=== PATIENT | female | born 1985 | race Caucasian/White ===

== ENCOUNTER 2018-10-19 17:08 | Outpatient (REF) | payer OTHER, SELFPAY ==
[2018-10-19 21:46] LABS: Cholesterol 283 mg/dL (50-200); HDL Cholesterol 46 mg/dL (40-60); TSH 1.54 uIU/mL (0.358-3.74); Triglyceride 181 mg/dL (30-150)
[2018-10-19 22:57] LABS: FREE T4 0.81 ng/dL (0.76-1.46)
[2018-10-19 23:10] LABS: LDL CHOLESTEROL 211 mg/dL (<100)
[2018-10-20 16:51] LABS: T3,Free 3.2 pg/ml (2.8-5.3)
== END 2018-10-19 17:28 ==
LOC: NCHCN 17:08
PROVIDERS: PCP Nurse Practitioner Family; Visit Provider Nurse Practitioner Family
DX: E78.5 Hyperlipidemia, unspecified (principal); F41.8 Other specified anxiety disorders; R19.8 Other specified symptoms and signs involving the digestive system and abdomen; R51 Headache; E66.9 Obesity, unspecified; Z90.89 Acquired absence of other organs
CPT/HCPCS: 80061; 83721; 84439; 84443; 84481

== ENCOUNTER 2019-11-19 12:04 | Outpatient (REF) | payer OTHER, SELFPAY ==
[2019-11-19 22:39] LABS: Abs Immature Grans 0.01 k/cumm (0.0-0.09); Absolute Basophil Count 0.03 k/cumm (0.0-0.2); Absolute Lymphocyte Count 1.32 k/cumm (1.2-3.4); Absolute Monocyte Count 0.33 k/cumm (0.11-0.7); Absolute Neutrophil Count 3.67 k/cumm (1.2-6.7); Basophils % 0.5; Eosinophils % 3.6; HCT 40.2 % (36.0-46.0); HGB 13.5 g/dL (12.0-15.5); Immature Grans % 0.2; Lymphocytes % 23.7; Mean Corp. HGB Concentration 33.6 g/dL (32.0-36.0); Mean Corpuscular Volume 86.5 fL (80-95); Mean Platelet Volume 11.7 fL (8.0-11.0); Monocytes % 5.9; Neutrophils % 66.1; Platelet Count 234 x1000/uL (130-400); RBC 4.65 m/cumm (4.00-5.20); RBC Distribution Width 13.3 % (11.7-14.6); White Blood Cell Count 5.56 k/cumm (4.4-10.8)
[2019-11-19 22:51] LABS: Iron 53 ug/dL (50-170)
[2019-11-19 23:04] LABS: Anion Gap 12.1 mmol/L (3-11); BUN 14 mg/dL (7-18); CO2 22.9 mmol/L (21.0-32.0); CREATININE 0.69 mg/dL (0.55-1.02); Calcium 8.9 mg/dL (8.5-10.1); Chloride 106 mmol/L (98-107); FREE T4 0.76 ng/dL (0.76-1.46); Glucose 96 mg/dL (74-106); Magnesium 1.7 mg/dL (1.8-2.4); Potassium 4.2 mmol/L (3.5-5.1); Sodium 141 mmol/L (136-145); TSH 1.45 uIU/mL (0.36-3.74)
[2019-11-19 23:45] LABS: Vitamin B12 949 pg/mL (193-986)
[2019-11-21 11:43] LABS: T3,Free 3.3 pg/mL (2.8-5.3)
== END 2019-11-19 12:24 ==
LOC: NCHCN 12:04
PROVIDERS: PCP Nurse Practitioner Family; Visit Provider Nurse Practitioner Family
DX: R53.83 Other fatigue (principal); R19.8 Other specified symptoms and signs involving the digestive system and abdomen; K30 Functional dyspepsia; R51 Headache; E78.5 Hyperlipidemia, unspecified; F41.8 Other specified anxiety disorders; E66.9 Obesity, unspecified; Z90.89 Acquired absence of other organs
CPT/HCPCS: 80048; 82607; 83540; 83735; 84439; 84443; 84481; 85025

== ENCOUNTER 2022-03-23 09:50 | Outpatient (REF) | payer OTHER, SELFPAY ==
--- NOTE | 2022-03-23 | PAPFT_PTH ---
PATIENT: Sweta Reid LOC: [facility]#:[id number] AGE/SX: 36/F ROOM: RE03/23/[address]: Aleja Mittal : 1985 BED: DIS: 03/23/2022 SPEC #: [id number] RECD: 03/23/22 16:29 STATUS: RANDY VO #: [id number] ALYSSA: 03/23/22 00:[address]: Aleja Mittal DEPT: [facility] Cytology RECD BY: Ang Mckeon Tissues: 1 - CX/ENDOCX FOR PAP SMEARS Procedures: PAP THIN PREP/UVM Screening HPV DNA PROBE Comments: [id number]
[2022-03-23 14:16] LABS: Abs Immature Grans 0.01 10^3/uL (0.0-0.06); Absolute Basophil Count 0.04 10^3/uL (0.0-0.2); Absolute Eosinophil Count 0.21 10^3/uL (0.0-0.7); Absolute Lymphocyte Count 1.76 10^3/uL (1.2-3.4); Absolute Monocyte Count 0.42 10^3/uL (0.1-0.8); Absolute Neutrophil Count 3.66 10^3/uL (1.2-6.7); Basophils % 0.7; Eosinophils % 3.4; HCT 41.4 % (36.0-46.0); HGB 13.8 g/dL (11.2-15.7); Immature Grans % 0.2; Lymphocytes % 28.9; MCHC 33.3 % (32.0-36.0); MCV 87 fL (80-95); MPV 11.9 fL (8.0-11.0); Monocytes % 6.9; Neutrophils % 59.9; Platelet Count 227 10^3/uL (130-400); RBC 4.76 10^6/uL (3.93-5.22); RDW 13.2 % (11.7-14.6); RDW-SD 41.8 fL
[2022-03-23 14:23] LABS: Iron 96 ug/dL (50-170); Total Iron Binding Capacity 315 ug/dL (250-450); Transferrin Sat 30 % (15-50)
[2022-03-23 14:52] LABS: Anion Gap 7.2 mmol/L (3-11); BUN 16 mg/dL (7-18); CO2 25.8 mmol/L (21.0-32.0); CREATININE 0.7 mg/dL (0.55-1.02); Calcium 8.6 mg/dL (8.5-10.1); Calculated LDL 204 mg/dL (<100); Chloride 106 mmol/L (98-107); Cholesterol 284 mg/dL (<200); Ferritin 83 ng/mL (8-252); Glucose 85 mg/dL (74-106); HDL Cholesterol 54 mg/dL (40-60); Potassium 4.1 mmol/L (3.5-5.1); Sodium 139 mmol/L (136-145); TSH (W/Ref FT4) 1.44 uIU/mL (0.36-3.74); Triglyceride 133 mg/dL (<150); Vitamin B12 717 pg/mL (193-986)
[2022-03-23 22:26] LABS: T3,Free 3.2 pg/mL (2.8-5.3)
[2022-03-24 10:47] LABS: Lyme Ab w Rflx to Lyme Confirm Negative (Negative)
[2022-03-25 22:23] LABS: Anaplasma phagocytophilum Negative (Negative); B. miyamotoi PCR Negative (Negative); Babesia divergens/MO-1 Negative (Negative); Babesia duncani Negative (Negative); Babesia microti Negative (Negative); Ehrlichia chaffeensis Negative (Negative); Ehrlichia ewingii/canis Negative (Negative); Ehrlichia muris eauclairensis Negative (Negative)
== END 2022-03-23 09:51 | disposition home or self-care (01) ==
LOC: NCHCN 09:50
PROVIDERS: PCP Nurse Practitioner Family; Visit Provider Nurse Practitioner Family
DX: R20.2 Paresthesia of skin (principal); R53.83 Other fatigue; R51.9 Headache, unspecified; K30 Functional dyspepsia; Z00.00 Encounter for general adult medical examination without abnormal findings; Z12.4 Encounter for screening for malignant neoplasm of cervix; Z11.51 Encounter for screening for human papillomavirus (HPV); M25.571 Pain in right ankle and joints of right foot; J30.2 Other seasonal allergic rhinitis; Z01.419 Encounter for gynecological examination (general) (routine) without abnormal findings
CPT/HCPCS: 80048; 80061; 87798; 88142; 82607; 82728; 83540; 83550; 84439; 84443; 84481; 85025; 86618; 87624

== ENCOUNTER 2022-04-01 21:11 | Emergency (ER) | payer OTHER, SELFPAY ==
--- NOTE | 2022-04-01 21:15 | RT.EKG_ITS ---
APPROVED REPORT Exam: Resting ECG Reason for Exam: short of breath Patient Location: E HR:70 bpm ECG Measurements Heart Rate 70 AXIS PA 130 P 23 QRSd 92 QRS 32 QT 375 T 14 QTc 406 Conclusion Sinus rhythm...normal P axis, V-rate 60- 99 Low voltage, precordial leads...precordial leads <1.0mV Normal [place] I have reviewed and interpreted ECG and agree with software generated interpretation.
[2022-04-01 21:16] VITALS: BP 156/91; PULSE 71; RESP 16; TEMP 36.6; O2SAT 97
--- NOTE | 2022-04-01 21:21 | ED.GENADUL_ITS ---
Discharge Plan Disposition Patient Disposition: HOME Condition: Good Discharge Details Clinical Impression: CAP (community acquired pneumonia) Primary Care Provider: Aleja Mittal ED Provider: Byron Sherwood Meds and New Rx's Prescriptions: New amoxicillin 500 mg tablet 1,000 mg PO TID Qty: 28 0RF azithromycin 250 mg tablet 250 mg PO DAILY 4 Days Qty: 4 0RF Rx Instructions: start on day 2 of therapy benzonatate 100 mg capsule 100 mg PO TID PRN (Reason: cough) Qty: 14 0RF Continued cetirizine [Zyrtec] 10 mg tablet 1 tab PO PRN PRN Label Comments: 1 daily if needed sertraline 50 MG tablet 100 mg PO DAILY Discharge Instructions Instructions: Community Acquired Pneumonia (ED) Additional Instructions: Your x-ray is consistent with a right sided you per my review. Radiology will over read films in the morning. COVID test is pending. Isolate at home, rest, drink plenty of fluids. Be sure to take antibiotics as directed. Follow-up with primary care next week if not improving. Return to ED for increasing shortness of breath, chest pain, mental status changes, vomiting, other concerns. Medical Decision Making Patient presenting with complaints of cough and chest tightness but not pain or shortness of breath. No associated symptoms and negative rapid COVID test every morning for the last 4 days. She looks well. Little hypertensive but otherwise vital signs normal with normal room air saturation. Lungs a little diminished. COVID PCR swab obtained and sent. DuoNeb treatment given with no lab improvement. EKG is normal. Portable chest x-ray obtained which shows a patchy right hilar infiltrate. Will treat for community-acquired pneumonia with amoxicillin and azithromycin. Patient to remain isolated until COVID swab returns negative. Follow-up with primary care next week if not improved once antibiotic is completed. Return to ED for increasing shortness of breath, chest pain, mental status changes, vomiting, other concerns. ECG Data Attestation: I personally reviewed and interpreted this ECG (s) as follows: Prior ECG tracings: available for review Interpretation: see EKG HPI General Mode of arrival: ambulatory . Date/Time Provider Initiated Documentation: 04/01/22 21:20 . Limitations to Documentation: no limitations . Information obtained by: patient and RN notes reviewed . HPI Narrative: Patient presents to the ED with complaint of cough and chest tightness but not necessarily pain or shortness of breath. Symptoms ongoing for about 4 days now. She has tested negative for COVID at home every morning. She denies having fever, headache, congestion, sore throat, myalgias, arthralgias, abdominal pain, vomiting or diarrhea. She is a elementary school tutor. She is vaccinated and boosted. Cough is mostly nonproductive. Symptoms seem better when she is in a cooler environment such as in her car with the air conditioner on. Related Data Home Medications Medication Instructions Recorded Confirmed sertraline 50 mg tablet 100 mg PO DAILY 05/27/18 04/01/22 cetirizine 10 mg tablet (Zyrtec) 1 tab PO PRN PRN 04/01/22 04/01/22 amoxicillin 500 mg tablet 1,000 mg PO TID #28 tabs 04/02/22 azithromycin 250 mg tablet 250 mg PO DAILY 4 days #4 tabs 04/02/22 benzonatate 100 mg capsule 100 mg PO TID PRN cough #14 caps 04/02/22 Previous Rx's Medication Instructions Recorded amoxicillin 500 mg tablet 1,000 mg PO TID #28 tabs 04/02/22 azithromycin 250 mg tablet 250 mg PO DAILY 4 days #4 tabs 04/02/22 benzonatate 100 mg capsule 100 mg PO TID PRN cough #14 caps 04/02/22 Allergies Allergy/AdvReac Type Severity Reaction Status Date / Time No Known Allergies Allergy Unverified 04/01/22 21:20 General Stated Complaint: RespSymp CHRISTINE: 3 Review of Systems Narrative: As documented in HPI otherwise negative as below. Const: no fever, chills, weakness Resp: no SOB, pleuritic pain CV: no CP, diaphoresis, edema, syncope GI: no abdominal pain, nausea, vomiting, diarrhea Neuro: no headache, numbness, focal weakness, confusion PFSH All Active Problems (Updated 04/02/22 @ 00:29 by Byron Sherwood MD) CAP (community acquired pneumonia) (Acute) Ankle pain (Acute) Medical History H/O malignant neoplasm of thyroid Surgical History H/O surgical procedure a. s/p partial thyroidectomy for cancer S/P appendectomy Family History Father Diabetes Heart disease Stroke Social History Smoking/Tobacco Use Status: Former Tobacco Use Smoking risk assessment performed?: Yes Alcohol Intake: current Alcohol Intake frequency: a few times a month Drug use: Never Do you feel safe in your relationship?: Yes History History Para 2 Hx # Term Pregnancies Multiple births Hx # Pregnancies Ectopic pregnancies AB induced Hx Number of Living Children AB spontaneous Exam Narrative Exam Narrative: Const: WDWN female in NAD. HEENT: NC/AT. Normal facial exam. Eyes: Normal conjunctiva and sclera. Neck: Supple. Trachea midline. Lungs: Normal respiratory effort. Lungs are clear, maybe slightly diminished. Cor: RRR without murmur/gallop. Good radial pulses. GI: Soft. NT/ND. No guarding or rebound. Neuro: A+O x 3. Normal speech, mentation, gait. Cranial nerves II - XII grossly intact. No gross motor or sensory deficit. Ext: No C/C/E. Skin: Warm and dry without rash. Course Vital Signs Vital signs: Vital Signs Temperature 97.9 F 04/01/22 21:16 Pulse 71 04/01/22 21:16 Respiratory Rate 16 04/01/22 21:16 Blood Pressure 156/91 H 04/01/22 21:16 Pulse Oximetry 97 04/01/22 21:16 Temperature 97.9 F 04/01/22 21:16 Temperature Source Skin 04/01/22 21:16 Pulse 71 04/01/22 21:16 Respiratory Rate 16 04/01/22 21:16 Blood Pressure 156/91 H 04/01/22 21:16 Pulse Oximetry 97 04/01/22 21:16 Pain Level 5 04/01/22 21:16
[2022-04-01 22:04] VITALS: PULSE 75; RESP 1; RESP 18; O2SAT 99
[2022-04-01] MEDS: Albuterol/Ipratropium 3 ML UPD VIAL UPD (22:04)
--- NOTE | 2022-04-01 22:30 | DI.RAD_ITS ---
Exam(s) XR PORTABLE CHEST AP EXAM: XR PORTABLE CHEST AP CLINICAL HISTORY: cough, SOB. TECHNIQUE: 2D digital imaging was performed. COMPARISON: CR ABD FLAT UPRIGHT PA CHEST from 11/22/2013 FINDINGS: Single AP portable view. Heart size is upper normal. The mediastinum is not widened. There is infiltrate in the right lower lobe infrahilar region. No pleural effusions. No pneumothora x. IMPRESSION: Right lung infiltrate. Recommend follow-up PA and lateral nonportable views. DATA REPOSITORY: RADIATION DOSE DELIVERED: All CT scans at this facility use at least one of these dose optimization techniques: automated exposure control; mA and/or kV adjustment per patient size (includes targeted e xams where dose is matched to clinical indication); or iterative reconstruction.
[2022-04-01 22:41] VITALS: PULSE 83; RESP 18; O2SAT 99
[2022-04-02] MEDS: Benzonatate 100 MG CAP PO (00:42)
[2022-04-02] MEDS: Amoxicillin 500 MG CAP 1000 MG PO (00:42)
[2022-04-02 00:43] VITALS: BP 143/82; PULSE 84; RESP 16; O2SAT 96
[2022-04-02] MEDS: Azithromycin 250 MG TAB 500 MG PO (00:43)
--- NOTE | 2022-04-02 00:59 | DI.VRAD_ITS ---
PROCEDURE INFORMATION: Exam: XR Chest Exam date and time: 04/01/2022 11:51 PM Age: 36 years old Clinical indication: Cough and shortness of breath; Additional info: Cough, SOB TECHNIQUE: Imaging protocol: XR of the chest. Views: 1 view. COMPARISON: CT CERVICAL SPINE WO 03/26/2022 3:13 PM FINDINGS: Lungs: Lungs are adequately inflated and symmetric. There is asymmetric patchy right infrahilar opacity. Otherwise no additional focal/lobar consolidation. Pleural spaces: No visible pleural effusion. No pneumothorax. Heart/Mediastinum: Cardiomediastinal contours within normal limits. Bones/joints: No acute osseous finding. IMPRESSION: Asymmetric patchy right infrahilar opacity concerning for infiltrate versus focal subsegmental atelectasis. Correlate clinically. Dictated and Authenticated by: Azeem Marks MD. Ordering:LEODAN Matthews MD
[2022-04-03 11:08] LABS: COVID-19 RT-PCR UVMMC Result Negative (Negative)
--- NOTE | 2022-04-03 18:33 | NUR.NOTE ---
negative covid result relayed to pt via phone.Nursing Note:
== END 2022-04-02 00:52 | disposition home or self-care (01) ==
PROVIDERS: Emergency Provider Emergency Medicine; PCP Nurse Practitioner Family
DX: J18.9 Pneumonia, unspecified organism (principal); R06.02 Shortness of breath; Z20.822 Contact with and (suspected) exposure to COVID-19
CPT/HCPCS: 93005; 94640; 99284; U0003; 71045; 93010; J7620

== ENCOUNTER 2022-09-23 15:14 | Outpatient (REF) | payer OTHER, SELFPAY ==
[2022-09-23 15:38] LABS: ALT 21 U/L (14-59); AST 17 U/L (15-37); Albumin 3.8 g/dL (3.4-5.0); Alkaline Phosphatase 76 U/L (46-116); Anion Gap 11.3 mmol/L (3-11); BUN 12 mg/dL (7-18); Bilirubin, Total 0.4 mg/dL (0.2-1.0); CO2 22.7 mmol/L (21.0-32.0); CREATININE 0.7 mg/dL (0.55-1.02); Calculated LDL 207 mg/dL (<100); Chloride 106 mmol/L (98-107); Cholesterol 295 mg/dL (<200); Estimated GFR 114.16 (mL/min/1.73m2); Glucose 93 mg/dL (74-106); HDL Cholesterol 54 mg/dL (40-60); Potassium 4.1 mmol/L (3.5-5.1); Sodium 140 mmol/L (136-145); Total Protein 7.6 g/dL (6.4-8.2); Triglyceride 173 mg/dL (<150)
== END 2022-09-23 15:15 | disposition home or self-care (01) ==
LOC: NCHCN 15:14
PROVIDERS: PCP Nurse Practitioner Family; Visit Provider Nurse Practitioner Family
DX: E78.5 Hyperlipidemia, unspecified (principal); R51.9 Headache, unspecified; K30 Functional dyspepsia; F41.8 Other specified anxiety disorders; G47.00 Insomnia, unspecified; J30.2 Other seasonal allergic rhinitis; R20.2 Paresthesia of skin
CPT/HCPCS: 80053; 80061

== ENCOUNTER 2022-12-03 11:42 | Outpatient (REF) | payer OTHER, SELFPAY ==
[2022-12-03 16:06] LABS: FREE T4 0.89 ng/dL (0.76-1.46); TSH 2.49 uIU/mL (0.36-3.74)
[2022-12-03 16:31] LABS: Calculated LDL 128 mg/dL (<100); Cholesterol 199 mg/dL (<200); HDL Cholesterol 56 mg/dL (40-60); Triglyceride 79 mg/dL (<150)
[2022-12-03 22:25] LABS: T3,Free 3.4 pg/mL (2.8-5.3)
== END 2022-12-03 11:43 | disposition home or self-care (01) ==
LOC: NCHCN 11:42
PROVIDERS: PCP Nurse Practitioner Family; Visit Provider Nurse Practitioner Family
DX: R53.83 Other fatigue (principal); F41.8 Other specified anxiety disorders; R20.2 Paresthesia of skin; E78.5 Hyperlipidemia, unspecified; R51.9 Headache, unspecified; K30 Functional dyspepsia; G47.00 Insomnia, unspecified
CPT/HCPCS: 80061; 84439; 84443; 84481

== ENCOUNTER → 2023-11-10 09:35 | Outpatient (BNVA) | payer OTHER, SELFPAY | PROVIDERS: PCP Nurse Practitioner Family; Referring Provider Nurse Practitioner Family; Visit Provider Psychiatry & Neurology Neurology | DX: G56.03 Carpal tunnel syndrome, bilateral upper limbs (principal); G43.109 Migraine with aura, not intractable, without status migrainosus; G43.009 Migraine without aura, not intractable, without status migrainosus; G44.209 Tension-type headache, unspecified, not intractable; G47.00 Insomnia, unspecified | CPT/HCPCS: 95910; 99215 ==

== ENCOUNTER 2023-12-21 11:38 | Outpatient (REF) | payer OTHER, SELFPAY | END 2023-12-21 11:39 | disposition home or self-care (01) | LOC: NCHCN 11:38 | PROVIDERS: PCP Nurse Practitioner Family; Visit Provider Nurse Practitioner Family | DX: F41.8 Other specified anxiety disorders (principal); Z85.850 Personal history of malignant neoplasm of thyroid | CPT/HCPCS: 84443 ==

== ENCOUNTER 2024-02-21 17:27 | Outpatient (REF) | payer OTHER, SELFPAY ==
[2024-02-21 21:18] LABS: Calculated LDL 131 mg/dL (<100); Cholesterol 197 mg/dL (<200); HDL Cholesterol 47 mg/dL (40-60); TSH 2.13 uIU/Ml (0.36-3.74); Triglyceride 95 mg/dL (<150)
[2024-02-21 21:37] LABS: FREE T4 0.86 ng/dL (0.76-1.46)
[2024-02-22 17:39] LABS: T3,Free 3.5 pg/mL (2.8-5.3)
== END 2024-02-21 17:28 | disposition home or self-care (01) ==
LOC: NCHCN 17:27
PROVIDERS: PCP Nurse Practitioner Family; Visit Provider Nurse Practitioner Family
DX: E78.5 Hyperlipidemia, unspecified (principal); Z90.89 Acquired absence of other organs
CPT/HCPCS: 80061; 84439; 84443; 84481

== ENCOUNTER 2024-06-25 20:29 | Outpatient (REF) | payer OTHER, SELFPAY ==
[2024-06-25 16:52] LABS: Triglyceride 101 mg/dL (<150)
[2024-06-25 18:07] LABS: Calculated LDL 197 mg/dL (<100); Cholesterol 281 mg/dL (<200); HDL Cholesterol 64 mg/dL (40-60)
[2024-06-26 09:51] LABS: HIV-1/2 Ag & Ab Screen Negative (Negative)
[2024-06-26 10:20] LABS: Hepatitis C Ab w Rflx HCV PCR Negative (Negative)
== END 2024-06-25 20:30 | disposition home or self-care (01) ==
LOC: NCHCN 20:29
PROVIDERS: PCP Nurse Practitioner Family; Visit Provider Nurse Practitioner Family
DX: E78.5 Hyperlipidemia, unspecified (principal); Z11.4 Encounter for screening for human immunodeficiency virus [HIV]; Z11.59 Encounter for screening for other viral diseases
CPT/HCPCS: 80061; 86803; 87389

== ENCOUNTER 2025-01-24 16:28 | Outpatient (REF) | payer OTHER, SELFPAY ==
[2025-01-24 15:11] LABS: ALT 21 U/L (14-59); AST 15 U/L (15-37); Albumin 3.7 g/dL (3.4-5.0); Alkaline Phosphatase 67 U/L (46-116); Anion Gap 5.8 mmol/L (3-11); BUN 11 mg/dL (7-18); Bilirubin, Total 0.3 mg/dL (0.2-1.0); CO2 28.2 mmol/L (21.0-32.0); CREATININE 0.7 mg/dL (0.55-1.02); Calcium 9.2 mg/dL (8.5-10.1); Calculated LDL 105 mg/dL (<100); Chloride 107 mmol/L (98-107); Cholesterol 189 mg/dL (<200); Estimated GFR 112.05 (mL/min/1.73m2); Glucose 88 mg/dL (74-106); HDL Cholesterol 73 mg/dL (>or=50); Potassium 4.5 mmol/L (3.5-5.1); Sodium 141 mmol/L (136-145); TSH 1.91 uIU/mL (0.36-3.74); Total Protein 6.7 g/dL (6.4-8.2); Triglyceride 55 mg/dL (<150)
[2025-01-24 23:04] LABS: T3,Free 3.2 pg/mL (2.8-5.3)
[2025-01-24 23:05] LABS: T4, Free 0.9 ng/dL (0.8-2.2)
== END 2025-01-24 16:29 | disposition home or self-care (01) ==
LOC: NCHCN 16:28
PROVIDERS: PCP Nurse Practitioner Family; Visit Provider Nurse Practitioner Family
DX: E78.5 Hyperlipidemia, unspecified (principal); Z90.89 Acquired absence of other organs
CPT/HCPCS: 80053; 80061; 84439; 84443; 84481

== ENCOUNTER 2025-11-12 16:27 | Outpatient (REF) | payer OTHER, SELFPAY ==
[2025-11-12 21:19] LABS: Hemoglobin A1C 5.1 % (<5.7)
[2025-11-12 21:24] LABS: ALT 21 U/L (10-49); AST 20 U/L (<34); Albumin 4.2 g/dL (3.2-5.0); Alkaline Phosphatase 71 U/L (46-116); Anion Gap 8.7 mmol/L (3-11); BUN 12 mg/dL (9-23); Bilirubin, Total 0.4 mg/dL (0.2-1.2); CO2 25.3 mmol/L (20.0-31.0); Calcium 9.3 mg/dL (8.3-10.6); Chloride 108 mmol/L (98-107); Cholesterol 174 mg/dL (<200); Glucose 97 mg/dL (74-106); HDL Cholesterol 65 mg/dL (>or=50); Potassium 4.3 mmol/L (3.5-5.1); Sodium 142 mmol/L (136-145); Total Protein 6.8 g/dL (5.7-8.2)
[2025-11-12 21:26] LABS: TSH (W/Ref FT4) 1.86 uIU/mL (0.55-4.78)
== END 2025-11-12 16:28 | disposition home or self-care (01) ==
LOC: NCHCN 16:27
PROVIDERS: PCP Nurse Practitioner Family; Visit Provider Nurse Practitioner Family
DX: E78.5 Hyperlipidemia, unspecified (principal); Z90.89 Acquired absence of other organs; Z13.1 Encounter for screening for diabetes mellitus
CPT/HCPCS: 80053; 80061; 83036; 84443